=== PATIENT | female | born 1975 | race Caucasian/White ===

== ENCOUNTER → 2024-03-04 10:08 | Outpatient (BNV) | payer OTHER, SELFPAY | PROVIDERS: PCP Physician Assistant; Referring Provider Physician Assistant; Visit Provider Internal Medicine Medical Oncology | DX: D64.9 Anemia, unspecified (principal) | CPT/HCPCS: 99204; 99213 ==

== ENCOUNTER 2024-03-31 08:00 | Outpatient (RCR) | payer OTHER, SELFPAY ==
[2024-03-10 07:42] VITALS: BP 115/78; PULSE 74; RESP 16; TEMP 37.1; O2SAT 98; BMI 26.6
[2024-03-10] MEDS: Sodium Ferric Gluconat/Sucrose 125 MG in 0.9 % Sodium Chloride 100 ML 100 MG IV (09:13)
[2024-03-10 10:25] VITALS: BP 122/84; PULSE 58; RESP 16; TEMP 37.2; O2SAT 100
[2024-03-17 07:35] VITALS: BP 125/80; PULSE 58; RESP 16; TEMP 37; O2SAT 100
[2024-03-17] MEDS: Sodium Ferric Gluconat/Sucrose 125 MG in 0.9 % Sodium Chloride 100 ML 100 MG IV (08:12)
[2024-03-24 07:49] VITALS: BP 134/80; PULSE 65; RESP 16; TEMP 37; O2SAT 99
[2024-03-24] MEDS: Sodium Ferric Gluconat/Sucrose 125 MG in 0.9 % Sodium Chloride 100 ML 100 MG IV (08:07)
[2024-03-31 07:42] VITALS: BP 128/80; PULSE 57; RESP 16; TEMP 36.9; O2SAT 100
[2024-03-31 08:15] LABS: Hematocrit 38.1 % (37.0-47.0); Hemoglobin 12.1 g/dl (12.0-16.0); Mean Corpuscular HGB Conc 31.8 g/dl (31.0-35.0); Mean Corpuscular Hemoglobin 26.9 pg (27.0-33.0); Mean Corpuscular Volume 84.7 fL (80.0-98.0); Mean Platelet Volume 10.1 fL (9.4-12.3); Platelet Count 231 X10*3/uL (160-400); Red Cell Distribution Width 17.2 % (11.0-16.0); White Blood Count 6.6 X10*3/uL (4.8-10.8)
[2024-03-31] MEDS: Sodium Ferric Gluconat/Sucrose 125 MG in 0.9 % Sodium Chloride 100 ML 100 MG IV (08:15)
--- NOTE | 2024-03-31 08:16 | HO.INF ---
08:05- lab in blood draw.
== END 2024-03-31 10:01 | disposition home or self-care (01) ==
LOC: HO.INF 08:00
PROVIDERS: Visit Provider Internal Medicine Medical Oncology
DX: D50.9 Iron deficiency anemia, unspecified (principal)
CPT/HCPCS: 36415; 85027; 96365; J2916